=== PATIENT | female | born 1985 | race Caucasian/White ===

== ENCOUNTER 2017-02-03 17:34 | Emergency (ER) | payer OTHER ==
[~2017-02-03 17:34] MED LIST: BACTRIM DS TABL1 TA1 PO; CELEXA20 MG PO; DARVOCET-N 1001 TAB PO; DELTASONE20 MG; PEPCID; PHENERGAN25 MG PO; PYRIDIUM100 MG PO; VICODIN 5/1 TAB 5/50 PO; VISTARIL
[2017-02-03 17:50] LABS: URINE SOURCE CLEAN CATCH
[2017-02-03 17:52] LABS: URINE APPEARANCE SL CLOUDY; URINE BLOOD 1+ (NEG); URINE COLOR YELLOW; URINE GLUCOSE NEG (NORM); URINE LEUKOCYTE ESTERASE 1+ (NEG); URINE NITRATE NEG (NEG); URINE PROTEIN TRACE (NEG); URINE SPECIFIC GRAVITY 1.025 (1.003-1.035)
[2017-02-03 17:57] LABS: BASOPHIL% 0.4 % (0-2.5); EOSINOPHIL% 0.8 % (0.0-7.0); HEMATOCRIT 45.8 % (35.0-45.0); HEMOGLOBIN 15.7 gm/dL (12.0-16.0); LYMPHOCYTE# 1.4 X10e3 (1.0-3.5); LYMPHOCYTE% 21.6 % (17.0-45.0); MEAN CELL VOLUME 90.3 FL (83-96); MEAN CORPUSCULAR HEMOGLOBIN 30.9 PG (28-34); MEAN CORPUSCULAR HGB CONC 34.2 g/dL (30-36); MEAN PLATELET VOLUME 7.4 FL (6.5-11.5); MONOCYTE# 0.8 X10e3 (0-1.0); MONOCYTE% 12.7 % (3.0-12.0); NEUTROPHIL# 4.1 X10e3 (1.5-7.1); NEUTROPHIL% 64.5 % (40-75); PLATELET COUNT 193 X10e3 (140-420); RED BLOOD COUNT 5.07 X10e (3.90-5.30); RED CELL DISTRIBUTION WIDTH 13.4 % (11.0-15.5); WHITE BLOOD COUNT 6.3 X10e3 (4.0-10.5)
[2017-02-03 17:59] LABS: MICRO INDICATED? YES; URINE BILIRUBIN NEG (NEG); URINE KETONE 2+ (NEG); URINE WBC 25-50 /[HPF] (0-5)
[2017-02-03 18:00] LABS: CULTURE INDICATED? YES; URINE BACTERIA 1+ (NEG); URINE SQUAMOUS EPITHELIAL CELL MANY /[HPF]
[2017-02-03 18:07] LABS: INFLUENZA A NEG (NEG); INFLUENZA B NEG (NEG)
[2017-02-03 18:09] LABS: DIFF IND NO
[2017-02-03 18:14] LABS: CALCIUM SERUM 8.7 mg/dL (8.4-10.2); CREATININE SERUM 0.8 mg/dL (0.6-1.4); GLOM FILT RATE Estimated 99.7 mL/min (>60); POTASSIUM 3.5 mmol/L (3.5-5.1)
== END 2017-02-03 18:40 | disposition home or self-care (01) ==
LOC: SED 17:34
PROVIDERS: Emergency Medicine
DX: N39.0 Urinary tract infection, site not specified (principal); B34.9 Viral infection, unspecified; F41.8 Other specified anxiety disorders; F17.210 Nicotine dependence, cigarettes, uncomplicated
CPT/HCPCS: 36415; 80048; 81003; 84703; 85025; 87086; 87088; 87186; 87651; 87804; 96361; 96374; 96375; 99284; J0696; J1885; J2405